=== PATIENT | female | born 1990 | race Hispanic/Latino ===

== ENCOUNTER → 2021-11-26 | Day surgery (SDC) | payer OTHER ==
[~2021-11-26] MED LIST: ADVIL PO; FENTANYL CITRATE/PF 100MCG/2 ML INJ ONE; METOCLOPRAMIDE HCL 10 MG/2ML VIAL ONE; MIDAZOLAM HCL 2 MG/2 ML VIAL ONE; NEXIUM40 MG PO; PROPOFOL IV EMULSION 10 MG/ML 20 ML VIAL IV ONE; SULCRAFATE PO
[2021-11-26 09:35] VITALS: BP 112/76
== END | disposition home or self-care (01) ==
LOC: OR 07:38
PROVIDERS: ATTEND Internal Medicine Gastroenterology
DX: K29.50 Unspecified chronic gastritis without bleeding (principal); K31.7 Polyp of stomach and duodenum; K20.90 Esophagitis, unspecified without bleeding; K21.9 Gastro-esophageal reflux disease without esophagitis; K59.09 Other constipation; Z71.3 Dietary counseling and surveillance; Z01.812 Encounter for preprocedural laboratory examination; Z20.822 Contact with and (suspected) exposure to COVID-19; Z79.1 Long term (current) use of non-steroidal anti-inflammatories (NSAID); Z68.33 Body mass index [BMI] 33.0-33.9, adult; Z86.16 Personal history of COVID-19
CPT/HCPCS: 0223U; 36415; 43239; 81025; C9113; J2250; J2704; J2765; J3010